=== PATIENT | male | born 1935 | race Caucasian/White ===

== ENCOUNTER 2016-12-04 14:43 | Emergency (ER) | payer MEDICARE, MEDICAID ==
--- NOTE | 2016-12-08 18:43 | ER ---
ADMIT: 12/04/2016 RM/LOC: ER [facility] MR#: [id number] [id number] [place], [place] [address] HUANG, YOLANDA E [address] [place] [address] Emergency Room Report SEX: M AGE: 81 : 1935 DATE: 12/04/2016 CHIEF COMPLAINT: Left-sided upper abdomen pain still present, severity moderate. No fever, nausea, vomiting, or diarrhea. REVIEW OF SYSTEMS: Otherwise negative. PAST MEDICAL HISTORY: He does not have any reported past medical history. MEDICATIONS: Takes no medications. ALLERGIES: NO ALLERGIES. PHYSICAL EXAMINATION: GENERAL: Well-nourished, well-developed, alert and oriented male. VITAL SIGNS: Within normal limits. O2 sats 95%. RESPIRATORY: He has a little bit of wheezing and a cough. Otherwise his lungs are clear. ABDOMEN: Upper left abdomen tender. BACK: Normal inspection. SKIN: Good color and turgor. EXTREMITIES: Nontender. NEUROLOGIC: Oriented x4. Mood and affect appropriate. LABORATORY DATA: White count 12.1 with a hemoglobin of 13.2, hematocrit is 39.3. Chemistry; glucose 104, albumin 2.6, GFR 69, lactic acid 1.1, urobilinogen 4.0, protein 1+. Given Rocephin IM and a followup azithromycin for home use as well as prednisone. CLINICAL IMPRESSION: Bilateral pneumonia. The patient refuses to stay for admission and as it stands if he can take care of himself at home, there is no need to put him in. He just needs close followup. Discharge instructions given. CARRIE Phipps / Shreyas Lazcano MD / casimiro JOB #: [id number] CC: Shreyas Lazcano MD, Attending Physician
[2017-02-24] MEDS ORDERED: ASA CHILDREN'S81 MG PO (14:24)
[2017-02-24] MEDS ORDERED: CARDIZEM CD DP120 MG PO (14:24)
[2017-02-24] MEDS ORDERED: COUMADIN5 MG PO (14:24)
[2017-02-24] MEDS ORDERED: COUMADIN2.5 MG PO (14:25)
[2017-02-24] MEDS ORDERED: LANOXIN DPS0.125 MG PO (14:25)
[2017-02-24] MEDS ORDERED: ZOCOR DPS20 MG PO (14:25)
[2017-02-24] MEDS ORDERED: ZYPREXA5 MG PO (14:25)
[2017-02-24] MEDS ORDERED: ZEBETA5 MG PO (14:25)
[2017-02-24] MEDS ORDERED: ZYPREXA2.5 MG PO (14:26)
[2017-02-24] MEDS ORDERED: HABITROL TP (14:26)
[2017-02-24] MEDS ORDERED: TYLENOL DPS325 MG PO (14:27)
[2017-02-24] MEDS ORDERED: MAALOX DPS30 ML PO (14:27)
[2017-02-24] MEDS ORDERED: PROVENTIL2.5 MG/3 M IH (14:27)
[2017-02-24] MEDS ORDERED: COLACE-DPS100 MG PO (14:27)
[2017-02-24] MEDS ORDERED: NITROSTAT0.4 MG SL (14:28)
[2017-06-14] MEDS ORDERED: TYLENOL DPS325 MG PO (09:40)
[2017-06-14] MEDS ORDERED: LEVAQUIN DPS500 MG PO (09:43)
[2017-06-14] MEDS ORDERED: DELTASONE DPS20 MG PO (09:43)
[2017-06-14] MEDS ORDERED: SALINE NASAL SP88 ML NS (09:44)
[2017-06-14] MEDS ORDERED: DUONEB DPS3 ML IH (09:44)
[2017-06-14] MEDS ORDERED: IMODIUM A-D2 M1 PO (09:44)
== END 2016-12-04 17:05 | disposition home or self-care (01) ==
LOC: ER 14:43
DX: J18.9 Pneumonia, unspecified organism (principal); R06.2 Wheezing; R10.12 Left upper quadrant pain

== ENCOUNTER 2017-02-12 18:57 | Inpatient (IN) | payer MEDICARE, MEDICAID ==
[~2017-02-12] VITALS: Ht 172.7 cm; Wt 78.5 kg
--- NOTE | ~2017-02-12 | HP ---
ADMIT: 02/12/2017 RM/LOC: 421 [facility] MR#: [id number] [id number] [place], [place] [address] YOLANDA ENCINAS [address] [place] [address] History and Physical SEX: M AGE: 81 : 1935 DATE OF SERVICE: CHIEF COMPLAINT: Shortness of breath. HISTORY OF PRESENT ILLNESS: Mr. Encinas is an 81-year-old male. He has a past medical history significant for history of COPD, coronary artery disease status post stent, GERD, hypertension, tobacco use, who presented to the ER via ambulance with a complaint of shortness of breath. Apparently, he was visiting his girlfriend at the senior living and had acute onset of shortness of breath. It sounds like maybe he waited 20- 30 minutes, called the squad. They noted when they picked him up, his heart rate was nearly 270. He was given adenosine twice, and it did show evidence of flutter waves after the adenosine was given. He reports that he otherwise has not had this happen before. He reports that he is now feeling much better than he was before. Otherwise, he reports that nothing else is really new or different. Of note, it looks like from our office notes that he was in to see Dr. Hernandez about 2 weeks ago. At that time, was having some trouble with swelling in his legs, and he had it sounds like they gave him some Lasix. He reports that he feels like this has helped, otherwise he really has no other complaints. PAST MEDICAL HISTORY: Significant for: 1. COPD. 2. Coronary artery disease status post stent. 3. GERD. 4. Hypertension. 5. Lumbar degenerative joint disease. 6. He is a smoker. 7. Hyperlipidemia. 8. Cognitive decline. 9. He is status post appendectomy. MEDICATIONS: Currently are: 1. Albuterol inhaler. 2. Amlodipine 10 mg p.o. daily. 3. Aspirin 81 mg p.o. daily. 4. Furosemide 40 mg p.o. daily. 5. Lisinopril 20 mg p.o. daily. 6. Zantac 150 p.o. twice daily. 7. Simvastatin 20 mg p.o. daily. ALLERGIES: NO KNOWN MEDICAL ALLERGIES. HE SMOKES APPROXIMATELY ONE PACK A DAY. HE HAS A GIRLFRIEND THAT LIVES IN THE RETIREMENT. FAMILY HISTORY: Positive for a brother with coronary artery disease but no other significant history. REVIEW OF SYSTEMS: Obtained, was otherwise essentially negative. PHYSICAL EXAMINATION: GENERAL: He is very hard of hearing. He appears to be ADMIT: 02/12/2017 RM/LOC: 421 [facility] MR#: [id number] [address] [address] HUANG, ALPHA E [address] [place] [address] History and Physical SEX: M AGE: 81 : 1935 in no apparent distress. Pupils are round, reactive. Oropharynx has poor dentition (actually no teeth). NECK: Supple. HEART: Tachycardic rate with an irregular rhythm. LUNGS: Have coarse breath sounds bilaterally with an occasional expiratory wheeze. ABDOMEN: Soft. Bowel sounds are present. Lower extremities have 2 to 3+ bilateral lower extremity edema. LABORATORY AND X-RAY DATA: Of note, his EKG does show that he had a rapid atrial flutter, otherwise his lab showed troponin of 0.1. Rest of the labs are relatively unremarkable. ASSESSMENT AND PLAN: 1. New onset atrial flutter. At this time, we will go ahead and give him some Lovenox, keep him anticoagulated, and put him n.p.o. after midnight. Have Surgery see him. Continue with Medardo wikls. We will plan to give him Xopenex p.r.n. He will likely need an echo also. 2. Underlying COPD (chronic obstructive pulmonary disease). I am uncertain the extent of his COPD as well. It does not sound like he uses an inhaler on a regular basis. 3. GERD (gastroesophageal reflux disease). Continue some Pepcid. 4. Hypertension. Currently, his blood pressure is low. We will hold off on any blood pressure medications at this time. 5. Nicotine dependence. 6. Hyperlipidemia, continue his simvastatin. 7. Cognitive decline. There is a note in our chart about concern for his ability to take care of himself. We will go ahead and ask the hospital social worker to see also. Lakshmi Andujar MD/ heidi JOB #: [id number] CC: Jonel Hernandez, Attending Physician Jonel Hernandez, Family Physician
--- NOTE | 2017-02-17 08:20 | ER ---
ADMIT: 02/12/2017 RM/LOC: 421 [facility] MR#: [id number] [address] [place], [place] [address] YOLANDA ENCINAS [address] [place] [address] Emergency Room Report SEX: M AGE: 81 : 1935 DATE: 02/12/2017 CHIEF COMPLAINT: Shortness of breath. HISTORY OF PRESENT ILLNESS: The patient is an 81-year-old male, comes in by EMS for shortness of breath and concern of possible SVT. Apparently, the patient was placed on the monitor, had a very rapid heart rate of at least 250 and they gave him adenosine 6 mg IV followed by 12 mg IV. They state that he slowed down, but went right back into the rapid rhythm. When the patient presents, he is a quite poor historian, he is not able to give me much history other than he just feels short of breath. He denies any chest pain, and thinks this began maybe 45 minutes ago to an hour when he was walking and not really exerted himself that much. He states he does not think this has happened in the past and thinks he might have some heart condition, but cannot give me more information on that. He denies being ill recently. REVIEW OF SYSTEMS: Unable to obtain a reliable review of systems due to the patient's likely cognitive issues with some dementia. PAST MEDICAL HISTORY: Obtained by talking to the physician covering for the patient's primary care physician. He does apparently have a history of coronary artery disease with stent placement, hypertension, high cholesterol, COPD, GERD. MEDICATIONS: The patient is unaware of his medications, so I did get a list from the primary service. See nurse's note for the list. ALLERGIES: NONE. SOCIAL HISTORY: The patient denies smoking or drug use. PHYSICAL EXAMINATION: GENERAL: The patient is alert, oriented on presentation. HEAD: Atraumatic. NECK: Supple. HEART: Tachycardic, rate of roughly 250. LUNGS: Clear to auscultation. ABDOMEN: Soft. SKIN: Warm and dry. EXTREMITIES: He has pulses in all 4 extremities. He does have 2+ pedal edema bilaterally to the lower extremities. No signs of any trauma. IMAGING: EKG shows tachycardic rhythm, rate of 266. Chest x-ray shows nothing acute compared to a previous chest x-ray. LABORATORY DATA: White count is 12.8, hemoglobin of 12.7, platelets 142. Chemistries are normal. CK is 53, CK-MB is 2.1, troponin 0.156, INR 1.21. EMERGENCY DEPARTMENT COURSE: The patient arrives, he is tachycardic, put him ADMIT: 02/12/2017 RM/LOC: 421 [facility] MR#: [id number] [address] [address] HUANG, ALPHA E [address] [place] [address] Emergency Room Report SEX: M AGE: 81 : 1935 on the monitor, it looks like it could be SVT. We did give him adenosine here 12 mg IV push, which does reveal that he is in atrial flutter rhythm. Shortly after the adenosine was given, he goes back into a tachycardic rhythm, but it is in the 140s to 160s. He was given Lopressor 5 mg IV, which slowed him down to 130 and then afterwards was given Cardizem IV followed by Cardizem drip, which has kept his heart rate in the low 100s. He is feeling better with that. He did receive a 500 mL normal saline bolus while in the Emergency Department. I spoke to Dr. Andujar, who is on this evening for the patient's primary care physician, and he will be admitted. DIAGNOSES: 1. Atrial flutter with rapid ventricular response. 2. Shortness of breath. 3. Elevated troponin. 4. Mild dementia. A 45 minutes of critical care time was spent on this patient. Admitted in improved condition. Benja Trent MD/ casimiro JOB #: [id number] CC: Jonel Hernandez MD, Attending Physician Jonel Hernandez MD, Family Physician
[2017-02-24] MEDS ORDERED: COUMADIN5 MG PO (14:24)
[2017-02-24] MEDS ORDERED: CARDIZEM CD DP120 MG PO (14:24)
[2017-02-24] MEDS ORDERED: ASA CHILDREN'S81 MG PO (14:24)
[2017-02-24] MEDS ORDERED: ZEBETA5 MG PO (14:25)
[2017-02-24] MEDS ORDERED: ZOCOR DPS20 MG PO (14:25)
[2017-02-24] MEDS ORDERED: COUMADIN2.5 MG PO (14:25)
[2017-02-24] MEDS ORDERED: LANOXIN DPS0.125 MG PO (14:25)
[2017-02-24] MEDS ORDERED: ZYPREXA5 MG PO (14:25)
[2017-02-24] MEDS ORDERED: ZYPREXA2.5 MG PO (14:26)
[2017-02-24] MEDS ORDERED: HABITROL TP (14:26)
[2017-02-24] MEDS ORDERED: PROVENTIL2.5 MG/3 M IH (14:27)
[2017-02-24] MEDS ORDERED: MAALOX DPS30 ML PO (14:27)
[2017-02-24] MEDS ORDERED: COLACE-DPS100 MG PO (14:27)
[2017-02-24] MEDS ORDERED: TYLENOL DPS325 MG PO (14:27)
[2017-02-24] MEDS ORDERED: NITROSTAT0.4 MG SL (14:28)
--- NOTE | 2017-02-25 10:56 | CO ---
ADMIT: 02/12/2017 RM/LOC: 421 [facility] MR#: [id number] [address] [place], [place] [address] YOLANDA ENCINAS [address] [place] [address] Consultation SEX: M AGE: 81 : 1935 DATE OF CONSULTATION: 02/13/2017 ATTENDING PHYSICIAN: Jonel Hernandez CONSULTING PHYSICIAN: Arturo Simental MD REASON FOR CONSULT: Atrial flutter. HISTORY OF PRESENT ILLNESS: Yolanda is an 81-year-old gentleman who is new to us. Apparently, he has coronary artery disease, but I do not know the details. He also has a long smoking history and COPD. I was asked to see him at the request of Dr. Andujar after he presented with a narrow complex tachycardia, has been diagnosed with new atrial flutter. The patient is extraordinarily hard of hearing. He is somewhat uncooperative this morning and does not want to answer my questions. From what I can gather, he was visiting somebody. He began to have palpitations with significant shortness of breath. He denies that he had significant chest discomfort. When the ambulance arrived, he was found to be very tachycardic. He was given 2 doses of adenosine, which revealed flutter waves. It appears that he was conducting one-to-one. He was subsequently hospitalized. He has been placed on a Cardizem drip and his heart rate much improved this morning with now 3 to 4 to 1 AV block and a heart rate of 75. He is on low-dose Cardizem. He said he felt his heart racing but mostly was short of breath. He did not have chest discomfort. His troponin is mildly elevated. He has been having some recent edema. Denies orthopnea or PND. His EKG also shows some T-wave inversion across the anterior precordial leads. ALLERGIES: NO KNOWN MEDICAL ALLERGIES. MEDICATIONS: I believe his home medications are: 1. Albuterol inhaler. 2. Amlodipine 10 daily. 3. Aspirin 81 daily. 4. Lasix 40 daily. 5. Lisinopril 20 daily. 6. Zantac 150 twice daily. 7. Simvastatin 20 daily. ILLNESSES: COPD, hypertension, he has lumbar osteoarthritis, gastroesophageal reflux disease, coronary artery disease with previous PCI. I do not know the details. Hyperlipidemia, some beginning dementia. PAST SURGICAL HISTORY: Prior appendectomy. FAMILY HISTORY: He just told me all his family is and did not know any details about his mother, father, or siblings demise or chronic illnesses. SOCIAL HISTORY: He says he lives with "Suyapa Goodman." He said he does ADMIT: 02/12/2017 RM/LOC: 421 [facility] MR#: [id number] [address] [address] HUANG, ALPHA E [address] [place] [address] Consultation SEX: M AGE: 81 : 1935 not smoke every day. Denies alcohol. He is . He denies having any children. REVIEW OF SYSTEMS: Impossible due to his severe hearing deficiency, and he was uncooperative this morning. PHYSICAL EXAMINATION: VITAL SIGNS: Currently, his blood pressure 108/61, his pulse is 74 and regular, respirations 20, his temperature is 99.5, O2 sats are 90% on supplemental oxygen. GENERAL: He wakes up for me. He was sleeping. He is very hard of hearing. He does not want to answer all my questions and he insists on going home. EYES: Sclerae clear. No xanthelasmas. ENT: He would not lift his chin, so I could not hear his carotid adequately, but I do not appreciate any significant JVD or bruits. HEART: Regular, is distant over his lung sounds. I do not hear any significant murmurs, rubs, or gallops. CHEST: Poor air movement throughout, but symmetric. No specific areas of rales or rhonchi. ABDOMEN: Soft and nontender. EXTREMITIES: There is mild discoloration bilaterally and pitting edema up to his mid calf. PSYCH: I am not sure he is completely oriented. He is a little bit uncooperative. He does answer some of my questions. He is not belligerent, but he is not cooperative either. MUSCULOSKELETAL: Gait is normal. LABORATORY DATA: Sodium 139, potassium is 4.5, creatinine 1.0. AST and ALT were normal. CK was normal at 86. His troponin has increased to 2.0 from 0.156 when he came in. White count is 12.5 with a hemoglobin of 12.7, and platelet count 152,000. A 12-lead EKG shows typical atrial flutter with T- wave inversion across the anterior precordium currently in 3 or 4-1 AV block. IMPRESSION: 1. Newly diagnosed symptomatic atrial flutter. 2. Chronic obstructive pulmonary disease. 3. Coronary artery disease. 4. Hypertension. 5. Ongoing tobacco abuse. 6. Probable dementia. RECOMMENDATIONS: His dementia may be a problem as far as treatment. I am not sure he is going to be compliant with his medications. He insists on going home. Luckily, his heart rate is much improved on the IV Cardizem. I think we will try rate control with oral Zebeta since he has coronary artery disease ADMIT: 02/12/2017 RM/LOC: 421 [facility] MR#: [id number] [address] [place] [id number] HUANG, ALPHA E [address] [place] [address] Consultation SEX: M AGE: 81 : 1935 and underlying COPD. I would suggest we start one of the newer anticoagulants and hopefully, we can confirm that he is taking it routinely. I will consider a LEANN guided cardioversion, but I do not think he could give consent, and I am not sure he would be willing at this point. I would like to do a baseline echo certainly before he leaves the hospital. If we can control his rate and keep him compliant, I will consider having him see the vault manager for definitive therapy with atrial flutter ablation. His atrial flutter was very fasting conducted 1-. I still think his troponin is nonspecific and secondary to his severe tachycardia. We will consider an ischemic evaluation with probable stress test in the future. Arturo Simental MD/ casimiro JOB #: [id number] CC: Jonel Hernandez, Attending Physician [facility] Hernandez, Family Physician
--- NOTE | 2017-03-04 12:08 | DS ---
ADMIT: 02/12/2017 RM/LOC: 421 [facility] MR#: [id number] [address] [place], [place] [address] YOLANDA ENCINAS [address] [place] [address] Discharge Summary SEX: M AGE: 81 : 1935 ADMISSION DATE: 02/12/2017 DISCHARGE DATE: 02/13/2017 DISCHARGE DIAGNOSES: 1. A (atrial) flutter with a 1:1 conduction. 2. Positive troponin. 3. Confusion. 4. Iwwo-so-kmldcyl. 5. Dyspnea. 6. Chest pain. 7. Hypoxia. 8. History of hypertension. 9. History of coronary artery disease status post stent. 10.History of nicotine dependence. HOSPITAL COURSE: The patient was admitted. Was initially given some adenosine out in the field and then was on an IV Cardizem drip. He was also started on anticoagulation. The next morning, Cardiology did come by and see him, started him on some oral Zebeta. The patient was pretty adamant about wanting to leave and would not stay. Therefore, it was felt at that time that he could make decisions and was not unable to make decisions for himself, and so therefore he was discharged home. He actually left A, but we did call in his 2 new medications, which in addition to his home medications, he was to be takin. Zebeta 5 mg p.o. daily. 2. Coumadin 5 mg p.o. daily. He was to get an INR checked on Wednesday at [facility]. Otherwise, he is to follow up with Dr. Hernandez in 1 week. Lakshmi Andujar MD/ ruslan JOB #: [id number] CC: Jonel Hernandez MD, Attending Physician Jonel Hernandez MD, Family Physician
[2017-06-14] MEDS ORDERED: TYLENOL DPS325 MG PO (09:40)
[2017-06-14] MEDS ORDERED: DELTASONE DPS20 MG PO (09:43)
[2017-06-14] MEDS ORDERED: LEVAQUIN DPS500 MG PO (09:43)
[2017-06-14] MEDS ORDERED: DUONEB DPS3 ML IH (09:44)
[2017-06-14] MEDS ORDERED: IMODIUM A-D2 M1 PO (09:44)
[2017-06-14] MEDS ORDERED: SALINE NASAL SP88 ML NS (09:44)
== END 2017-02-13 10:24 | disposition left against medical advice (07) | DRG 310 ==
LOC: ER 18:57 → 4PCU 20:00
PROVIDERS: ADMIT Internal Medicine
DX: I48.92 Unspecified atrial flutter (principal); J44.9 Chronic obstructive pulmonary disease, unspecified; R41.81 Age-related cognitive decline; I10 Essential (primary) hypertension; R79.89 Other specified abnormal findings of blood chemistry; H91.90 Unspecified hearing loss, unspecified ear; R09.02 Hypoxemia; I25.10 Atherosclerotic heart disease of native coronary artery without angina pectoris; M47.816 Spondylosis without myelopathy or radiculopathy, lumbar region; F17.210 Nicotine dependence, cigarettes, uncomplicated; K21.9 Gastro-esophageal reflux disease without esophagitis; Z95.5 Presence of coronary angioplasty implant and graft; Z79.82 Long term (current) use of aspirin; Z82.49 Family history of ischemic heart disease and other diseases of the circulatory system

== ENCOUNTER 2017-02-13 13:55 | Inpatient (IN) | payer MEDICARE, MEDICAID ==
[~2017-02-13] VITALS: Ht 172.7 cm; Wt 76.7 kg
--- NOTE | ~2017-02-13 | ECH ---
Transthoracic Echocardiography Report (TTE) Demographics Patient Name YOLANDA ENCINAS Date of Study 02/18/2017 Patient Number [id number] Visit Number [id number] Date of 1935 Room Number 421 Accession Number [id number] Gender Male Age 81 year(s) Referring David Muller MD Wire Worker [facility] Physician Physician Salvatore Toledo MD Watch Assembly Inspector Physician August Supervising Ordering Physician Philomena Harper MD, MD/MLP Nurse Stress Political Researcher Conclusions Contractility Score Summary Normal Left Ventricular contractility was noted. Summary Technically adequate exam. The estimated left ventricular ejection fraction is 50% in underlying atrial flutter. Mild to moderate left ventricular hypertrophy. The left atrium is moderately dilated by LA volume index measurement. The right atrium is mildly dilated. No significant valvular abnormalities. Recommendation The patient will be given the results of this study by the physician who ordered the exam. Procedure Type of Study TTE procedure:Echo Complete SF. Procedure Date Date: 02/18/2017 Start: 11:04 AM Technical Quality: Adequate visualization Indications:Atrial flutter, Coronary artery disease and Hypertension. Appropriate Use Criteria: 9 Height: 68 inches Weight: 170 pounds BSA: 1.91 m Rhythm: Atrial flutter HR: 74 bpm BP: 88/47 mmHg M-Mode/2D Measurements LV Diastolic Dimension: 4.67 cm LV Systolic Dimension: 3.17 cm LV Septum Diastolic: 1.1 cm LV PW Diastolic: 1.32 cm AO Root Dimension: 2.76 cm Cardiac Output: 2.88 l/min LA Dimension: 3.99 cm Cardiac Index: 1.51 l/min*m RV Diastolic Dimension: 3.28 cm LA volume index: 46 ml/m LVOT: 2.02 cm LVOT VTI: 12.13 cm RV Base: 3.97 cm LV Stroke volume: 38.85 ml RV Mid: 2.46 cm LV Stroke volume index: 20.34 ml/m RV Length: 6.36 cm TAPSE: 1.56 cm Doppler Measurements AV Peak Velocity: 1.1 m/s MV Peak E-Wave: 0.8 m/s AV Peak Gradient: 4.84 mmHg AV Mean Gradient: 3.72 mmHg LVOT Peak Velocity: 0.68 m/s AV Area (Continuity):1.66 cm TR Velocity:2.03 m/s Estimated PASP: 21.48 mmHg TR Gradient:16.48 mmHg Estimated RAP:5 mmHg Estimated RVSP: 21 mmHg RA Area: 18.28 cm Findings Left Ventricle The left ventricle is normal in size . Mild to moderate left ventricular hypertrophy. Diastolic function indeterminate due to patient's arrhythmia. Right Ventricle Normal right ventricle structure and function. Left Atrium The left atrium is moderately dilated by LA volume index measurement. Right Atrium The right atrium is mildly dilated. Mitral Valve Normal mitral valve structure and function. Trivial mitral regurgitation by color Doppler. Aortic Valve The aortic valve is mildly sclerotic. Tricuspid Valve Normal tricuspid valve structure and function. Mild tricuspid regurgitation by color Doppler. Estimated pulmonary pressures within normal range. Pulmonic Valve The pulmonic valve is not well visualized. Pericardial Effusion No evidence of pericardial effusion. Miscellaneous Visualized portions of the aortic root and ascending aorta appear normal in size. Pleural Effusion No evidence of pleural effusion. Contractility Score LV regional wall motion:(0-Non visualized 1-Normal 2-Hypokinesis 3-Akinesis 4-Dyskinesis 5-Aneurysm) Signature
--- NOTE | ~2017-02-13 | LETTER ---
ADMIT: 02/13/2017 RM/LOC: 421 [facility] MR#: [id number] [address] [facility] [address] ERROL VASQUEZ [address] [place] [address] Letter SEX: M AGE: 81 : 1935 February 15, 2017 Re: ERROL VASQUEZ To whom it may concern: The patient, Errol Vasquez, 1935, is currently a patient under my care. The patient has recently been evaluated by myself and Dr. Galvin with Psychiatry and at this point, due to the diagnosis of cognitive decline/dementia with agitation, I am recommending guardianship and placement in a senior living facility. Please do not hesitate to contact my office with any questions or concerns. Sincerely, MD ZULEMA Lawton/casimiro /[id number]
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
[2017-02-24] MEDS ORDERED: ASA CHILDREN'S81 MG PO (14:24)
[2017-02-24] MEDS ORDERED: CARDIZEM CD DP120 MG PO (14:24)
[2017-02-24] MEDS ORDERED: COUMADIN5 MG PO (14:24)
[2017-02-24] MEDS ORDERED: ZOCOR DPS20 MG PO (14:25)
[2017-02-24] MEDS ORDERED: ZYPREXA5 MG PO (14:25)
[2017-02-24] MEDS ORDERED: COUMADIN2.5 MG PO (14:25)
[2017-02-24] MEDS ORDERED: ZEBETA5 MG PO (14:25)
[2017-02-24] MEDS ORDERED: LANOXIN DPS0.125 MG PO (14:25)
[2017-02-24] MEDS ORDERED: ZYPREXA2.5 MG PO (14:26)
[2017-02-24] MEDS ORDERED: HABITROL TP (14:26)
[2017-02-24] MEDS ORDERED: MAALOX DPS30 ML PO (14:27)
[2017-02-24] MEDS ORDERED: PROVENTIL2.5 MG/3 M IH (14:27)
[2017-02-24] MEDS ORDERED: TYLENOL DPS325 MG PO (14:27)
[2017-02-24] MEDS ORDERED: COLACE-DPS100 MG PO (14:27)
[2017-02-24] MEDS ORDERED: NITROSTAT0.4 MG SL (14:28)
--- NOTE | 2017-02-26 09:59 | DS ---
ADMIT: 02/13/2017 RM/LOC: 421 [facility] MR#: [id number] [address] [place], [place] [address] YOLANDA ENCINAS [address] [place] [address] Discharge Summary SEX: M AGE: 81 : 1935 ADMISSION DATE: 02/13/2017 DISCHARGE DATE: 02/23/2017 DISCHARGE DIAGNOSES: 1. Dementia with agitation, agitation resolved. 2. Atrial flutter with rapid ventricular response. 3. Need for chronic anticoagulation with Coumadin. 4. Hypertension. 5. Hyperlipidemia. 6. Chronic diastolic heart failure. CONSULTATIONS: 1. Cardiology. 2. Psychiatry. PROCEDURES: None. REASON FOR ADMISSION: A very pleasant, 81-year-old gentleman who was admitted and then readmitted after leaving [place] when he was brought in with police secondary to agitation and confusion. When he was admitted it was found he was just not safe to live on his own. He was also in atrial flutter and was admitted for further evaluation and treatment. For complete details, please see H and P dictated on the day of admission. HOSPITAL COURSE: At the time of admission, the patient was placed in a telemetry bed. He did require a sitter for a period of time. Psychiatry was consulted and they did agree that this was likely dementia just with some agitation. He was started on some Zyprexa and did very well. His agitation resolved. He was found to be in atrial flutter and underwent rate control anticoagulation strategy. Did have to deal with some blood pressure issues but eventually he did need some IV digoxin loading and did need some IV Cardizem. Cardiology saw him. As mentioned, he underwent echocardiogram which showed a normal ejection fraction. We were able to get his rates controlled and while monitoring his blood pressures closely. He was ADMIT: 02/13/2017 RM/LOC: 421 [facility] MR#: [id number] [address] [place], [place] [address] YOLANDA ENCINAS [address] [place] [address] Discharge Summary SEX: M AGE: 81 : 1935 eventually sent out on a regimen of Zebeta, Cardizem and digoxin. He ambulated and he ate and was thought to be ready for discharge as soon as probably the 19 of February. However, did need to have guardianship. As he had no family, no guardianship needed to be established. Emergency guardianship was undertaken and he was finally able to be discharged on 02/23 to [facility]. DISCHARGE INSTRUCTIONS: Discharge medications are found on his discharge medication list. Discharge diet is a cardiac diet. Discharge activity is as tolerated. He will have follow up with myself and the [facility] within the next couple of weeks. He will have followup INR due to his recent Coumadin initiation. Jonel Hernandez MD/ vdg JOB #: [id number] CC: Jonel Hernandez MD, Attending Physician Jonel Hernandez MD, Family Physician
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
[2017-06-14] MEDS ORDERED: TYLENOL DPS325 MG PO (09:40)
[2017-06-14] MEDS ORDERED: DELTASONE DPS20 MG PO (09:43)
[2017-06-14] MEDS ORDERED: LEVAQUIN DPS500 MG PO (09:43)
[2017-06-14] MEDS ORDERED: SALINE NASAL SP88 ML NS (09:44)
[2017-06-14] MEDS ORDERED: IMODIUM A-D2 M1 PO (09:44)
[2017-06-14] MEDS ORDERED: DUONEB DPS3 ML IH (09:44)
== END 2017-02-23 15:19 | DRG 57 ==
LOC: ER 13:55 → 4PCU 15:30
PROVIDERS: ADMIT Internal Medicine
DX: G30.9 Alzheimer's disease, unspecified (principal); I11.0 Hypertensive heart disease with heart failure; I95.9 Hypotension, unspecified; F02.81 Dementia in other diseases classified elsewhere, unspecified severity, with behavioral disturbance; I50.32 Chronic diastolic (congestive) heart failure; I48.92 Unspecified atrial flutter; J44.9 Chronic obstructive pulmonary disease, unspecified; F17.210 Nicotine dependence, cigarettes, uncomplicated; H91.90 Unspecified hearing loss, unspecified ear; I25.10 Atherosclerotic heart disease of native coronary artery without angina pectoris; K21.9 Gastro-esophageal reflux disease without esophagitis; M47.816 Spondylosis without myelopathy or radiculopathy, lumbar region; E78.5 Hyperlipidemia, unspecified; Z79.82 Long term (current) use of aspirin; Z95.5 Presence of coronary angioplasty implant and graft; Z79.01 Long term (current) use of anticoagulants; Z82.49 Family history of ischemic heart disease and other diseases of the circulatory system

== ENCOUNTER 2017-06-04 23:15 | Inpatient (IN) | payer MEDICARE, MEDICAID ==
[~2017-06-04] VITALS: Ht 172.7 cm; Wt 71.2 kg
--- NOTE | ~2017-06-04 | OR ---
ADMIT: 06/05/2017 RM/LOC: 521 [facility] MR#: [id number] [facility]#: [id number] [address] [address] YOLANDA ENCINAS [place], [place] [address] Operative/Delivery Room Report SEX: M AGE: 81 : 1935 SURGERY DATE: 06/08/2017 SURGEON: Robert Braun MD PREOPERATIVE DIAGNOSES: Evidence of bleeding with a high INR and anemia. POSTOPERATIVE DIAGNOSES: Mild gastritis. No ulcers, masses, or lesions seen throughout the stomach or duodenum. A small hiatal hernia, but no evidence for bleeding or anemia. 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 FINAL PATHOLOGY: Pending on biopsies. PROCEDURES: 1. EGD. 2. Colonoscopy with biopsies of the cecal mass and tattooing around this area. ANESTHESIA: MAC. ESTIMATED BLOOD LOSS: Less than 5 mL. INDICATION FOR PROCEDURE: Please see H and P. DESCRIPTION OF PROCEDURE: After the risks, benefits, possible complications, and the alternatives had been explained and informed consent had been obtained, the patient was taken back to the procedure room, underwent sedation. Flexible EGD scope was introduced. GE junction seen in the first picture maneuvered through here, through the stomach, down in the second portion of the duodenum seen in the 3rd picture. Duodenum and duodenal bulb appeared okay. The gastric antrum had some mild irritation and gastritis, but no evidence of ulcers, lesions, anything that should be causing bleeding or anemia. Retroflexion and inspection of the remainder of the stomach as well shows no other mass or lesion. I then came back up, slowly withdrawn, inspecting the remainder of the esophagus on the way out and that portion of the procedure was terminated. The scope was replaced, the patient was repositioned, the flexible colonoscope was introduced, the actual prep was decent, was good. Slowly, I maneuvered all the way over to the cecum and 2 sets of pictures there, a little hard to tell, I kept trying to get around this area of the ileocecal valve and basically I think there is a mass there in the cecum, just did not appear normal. I did multiple biopsies of this area. Like I said, I could never feel like I got just a great picture of it. Picture #4 on the first set and then on the second set picture #3, kind of shows this area where I was able to ADMIT: 06/05/2017 RM/LOC: 521 [facility] MR#: [id number] [address] [address] [place] [address] Operative/Delivery Room Report SEX: M AGE: 81 : 1935 push down the ileocecal valve. On the back side of the second set, the ileocecal valve was seen nicely in picture #1 there, so I did multiple biopsies of this area and then tattooed around it just distal to it, but it sure appears to be right at the cecum with the ileocecal valve there. On the remainder of the ascending, transverse, descending, sigmoid, and rectum, I did not see any other significant polyps, masses, lesions, or other mucosal changes. The lower rectum and rectal exam revealed no mass or lesion. The scope was removed and the procedure terminated, tolerated it well, was taken to recovery room in stable and satisfactory condition. Robert Braun MD/ casimiro JOB #: [id number] CC: Jonel Hernandez, Attending Physician Jonel Hernandez, Family Physician Jonel Hernandez MD
--- NOTE | ~2017-06-04 | ER ---
ADMIT: 06/05/2017 RM/LOC: 314 [facility] MR#: [id number] [address] [address] [place] [address] Emergency Room Report SEX: M AGE: 81 : 1935 DATE: 06/04/2017 CHIEF COMPLAINT: Rectal bleeding. HISTORY OF PRESENT ILLNESS: The patient is an 81-year-old gentleman, lives at [facility], who has dementia, comes in after they found that he had some blood going down his thighs and a blood clot in his depends. We did not know the exact time of onset, but it does appear to have likely began this afternoon. From my understanding, the patient has not had GI bleed issues in the past. He is on Coumadin for atrial fibrillation. When I speak to the patient, he has no specific complaints to me. PAST MEDICAL HISTORY: 1. Atrial fibrillation. 2. Hypertension. 3. High cholesterol. 4. Dementia. 5. GERD. 6. Degenerative disk disease. PAST SURGICAL HISTORY: He has had appendectomy and a stent. MEDICATIONS: See nurse's note. He is on Coumadin. ALLERGIES: SEE NURSE'S NOTE. SOCIAL HISTORY: He lives in a [facility]. PHYSICAL EXAMINATION: VITAL SIGNS: Initial blood pressure is 106/43, respirations 17, pulse 49, temp 98.3, sats 92% on 2 L. HEENT: Head is atraumatic. The patient does appear slightly pale. HEART: Irregular. LUNGS: Clear to auscultation. ABDOMEN: Soft, nontender. SKIN: Warm and dry. EXTREMITIES: He has no pedal edema. NEURO: The patient's neuro exam is unremarkable. LABORATORY DATA: Hemoglobin is 8.7 with platelets of 190. Sodium 142, potassium 4.2, carbon dioxide 26, BUN 29, glucose 111, calcium 7.9. Troponin less than 0.015. INR 8.67. EMERGENCY DEPARTMENT COURSE: The patient presented. We went ahead and got two IV lines started and began giving him fluid resuscitation for some ADMIT: 06/05/2017 RM/LOC: 314 [facility] MR#: [id number] [address] [address] HUANG, [place] [address] Emergency Room Report SEX: M AGE: 81 : 1935 hypotension. He was also given Protonix 80 mg IV. His hemoglobin came back at 8.7, so we decided not to transfuse at this time as we did have some improvement in his blood pressure with the fluid resuscitation. His INR came back at 8.7 also, so he was given 10 mg of vitamin K IV. He normally sees Dr. Hernandez, so I spoke to Dr. Andujar who is on-call this evening, we will be admitting the patient to the ICU. DIAGNOSES: 1. Supratherapeutic INR. 2. Lower gastrointestinal bleed. 3. Hypotension. Benja Trent MD/ casimiro JOB #: [id number] CC: Jonel Hernandez MD, Attending Physician Jonel Hernandez MD, Family Physician
[~2017-06-04 23:15] MED LIST: ASA CHILDREN'S81 MG PO; CARDIZEM CD DP120 MG PO; COLACE-DPS100 MG PO; COUMADIN2.5 MG PO; COUMADIN5 MG PO; HABITROL TP; LANOXIN DPS0.125 MG PO; MAALOX DPS30 ML PO; NITROSTAT0.4 MG SL; PROVENTIL2.5 MG/3 M IH; TYLENOL DPS325 MG PO; ZEBETA5 MG PO; ZOCOR DPS20 MG PO; ZYPREXA2.5 MG PO; ZYPREXA5 MG PO
--- NOTE | 2017-06-07 08:09 | CO ---
ADMIT: 06/05/2017 RM/LOC: 521 [facility] MR#: [id number] [address] [address] [place] [address] Consultation SEX: M AGE: 81 : 1935 DATE OF CONSULTATION: 06/06/2017 ATTENDING PHYSICIAN: Jonel Hernandez CONSULTING PHYSICIAN: Carl Johnson MD HISTORY OF PRESENT ILLNESS: This is an 81-year-old demented male, seen in surgical consultation for Dr. Jonel Hernandez for consideration of upper and lower endoscopy. He had eren bright red blood per rectum yesterday, and was brought in after also an episode of syncope. He is unable to relay additional history because of his baseline dementia. He is not sure actually why he is here. He was found to be anemic and also had a supratherapeutic INR of greater than 8. He was subsequently admitted for further workup and treatment. He denies any other complaints today. He has not had eren bleeding overnight, and has remained hemodynamically stable. PAST MEDICAL HISTORY: 1. Dementia. 2. Atrial fibrillation with atrial flutter. 3. Hypertension. 4. Hyperlipidemia. 5. Chronic diastolic heart failure. 6. Coronary artery disease. 7. GERD. 8. COPD. 9. Degenerative lumbar disc disease. MEDICATIONS: At home: 1. Acetaminophen. 2. Aspirin. 3. Cardizem. 4. Coumadin. 5. Doxycycline. 6. DuoNebs. 7. Imodium. 8. Digoxin. 9. Maalox. 10.Nitroglycerin. 11.ProAir. 12.Zebeta. 13.Zocor. 14.Zyprexa. ALLERGIES: NO KNOWN MEDICAL ALLERGIES. SOCIAL HISTORY: Does have a long-standing history of smoking; however, he has not recently because of his living situation. He is a nondrinker. He has court-appointed guardian. ADMIT: 06/05/2017 RM/LOC: 521 [facility] MR#: [id number] [facility] [address] [place], [place] [address] [place] [address] Consultation SEX: M AGE: 81 : 1935 FAMILY HISTORY: Noncontributory. REVIEW OF SYSTEMS: Bright red blood per rectum noted above as well as syncope. Remainder of the 10-point review of systems is negative for other change. PHYSICAL EXAMINATION: GENERAL: Yolanda is alert, confused, in no apparent distress. VITAL SIGNS: Stable. HEENT: Cranial nerves are intact. Sclerae appear pale. NECK: Supple. Trachea is midline. LUNGS: Diminished bilaterally. HEART: Regular rate and rhythm currently. ABDOMEN: Soft and nontender with no palpable masses. EXTREMITIES: Calves are soft bilaterally without neurologic deficit. LABORATORY STUDIES: Sodium 144, potassium 3.9, chloride 113, carbon dioxide 23, BUN of 17, creatinine of 0.9. Hepatic function panel normal. INR today is 1.39, improved from greater than 8. White blood cell count 11.4, hemoglobin of 8.2, platelet count of 135. IMPRESSION: Bright red blood per rectum with supratherapeutic INR of 8. PLAN: His INR is much improved today at 1.39. I do recommend proceeding with esophagogastroduodenoscopy and colonoscopy for further evaluation, as it does not appear that he has ever had these endoscopic studies performed. Those arrangements were being made for tomorrow, and we will obtain guardian consent for that. Carl Johnson MD/ casimiro JOB #: [id number] CC: Jonel Hernandez, Attending Physician Jonel Hernandez, Family Physician
--- NOTE | 2017-06-07 14:39 | HP ---
ADMIT: 06/05/2017 RM/LOC: [address] [facility] MR#: [id number] [address] [address] [place] [address] History and Physical SEX: M AGE: 81 : 1935 DATE OF SERVICE: CHIEF COMPLAINT: "I do not know why I am here." HISTORY OF PRESENT ILLNESS: An 81-year-old patient with dementia; COPD with long history of tobacco abuse; known coronary disease; atrial fibrillation and aflutter, on chronic anticoagulation, presents to [facility] Emergency Room last night from [place] where he is a current resident, reports from the emergency room. Detail episode of large amount of blood and clots from the rectum as well as some dizziness. The patient was also noted to be anemic with a supratherapeutic INR in the ER, and he has been referred to the ICU for further evaluation and treatment. This morning, the patient is not quite sure why he is here and wants to go home. The patient denies any chest pain or shortness of breath. No breathing problems are noted. The patient denies any abdominal pain, nausea, or vomiting. Denies any problems with blood per rectum. Notes that he thinks that was all just blackberry jam and that his caregivers are "full of shit." The patient states this morning he is thirsty and even is a little hungry. PAST MEDICAL HISTORY: 1. Dementia with agitation/behavioral disturbances. 2. Atrial fibrillation/aflutter with RVR, on chronic anticoagulation. 3. Hypertension. 4. Hyperlipidemia. 5. Chronic diastolic heart failure. 6. Coronary artery disease. 7. Nocturnal leg cramps. 8. Degenerative lumbar disk disease. 9. Presbycusis. 10.GERD. 11.Chronic obstructive pulmonary disease. CURRENT HOME MEDICINES: Include: 1. Acetaminophen. 2. Aspirin. 3. Cardizem. 4. Coumadin. 5. Doxycycline. 6. DuoNebs. 7. Imodium. 8. Digoxin. 9. Maalox. 10.Nitroglycerin. 11.ProAir. 12.Saline Nasal Mist. 13.Zebeta. 14.Zocor. 15.Zyprexa. ADMIT: 06/05/2017 RM/LOC: [address] [facility] MR#: [id number] [address] [address] HUANG, [place] [address] History and Physical SEX: M AGE: 81 : 1935 ALLERGIES: NO KNOWN MEDICAL ALLERGIES. SOCIAL HISTORY: Ongoing tobacco use, although he just did quit I believe "when he moved into the assisted living." He is a non-drinker. He has a court-appointed guardian. He has been a like last couple of months. FAMILY HISTORY: Noncontributory and actually, it is really unknown as the patient does not have any living family. REVIEW OF SYSTEMS: Noted above. All systems reviewed and negative. PHYSICAL EXAMINATION: VITAL SIGNS: 97, 46, 15, 125/50, 93% on a couple liters of nasal cannula. GENERAL: This is a gentleman, appears older than stated age. He is in no apparent distress. He is awake, he is alert, pleasantly a little grumpy this morning and confused, which he is at his baseline. He is normocephalic and atraumatic. Mucous membranes are a little dry. NECK: Supple. LUNGS: Little diminished. Has a few rhonchi, but no wheezes or rales. HEART: Regular at this time. I do not hear any obvious murmurs. ABDOMEN: Soft, nontender, nondistended. Positive bowel sounds throughout. RECTAL: Patient defers rectal exam, but just perirectal exam showed a little bit of dark blood, more looks like some melena and some small blood perirectally. EXTREMITIES: Do not show me any edema. LABORATORY WORK: Shows a hemoglobin of 8.7, white count 12.8, 190,000 platelets. Sodium 142, potassium 4.2, BUN is 29, creatinine 1.1. His INR initially was greater than 8 and last check was down at 3.6 after vitamin K in emergency room. His troponin is less than 0.015. ASSESSMENT AND PLAN: 1. Painless bright red blood per rectum. 2. Anemia of acute blood loss. 3. Atrial fibrillation and aflutter, on chronic anticoagulation, now with supratherapeutic INR. ADMIT: 06/05/2017 RM/LOC: [address] [facility] MR#: [id number] [address] [place] [id number] [place] [address] History and Physical SEX: M AGE: 81 : 1935 4. Chronic obstructive pulmonary disease with recent exacerbation. 5. Dementia. 6. History of coronary disease. At this point, the patient is hemodynamically stable. I wonder if this was possibly a diverticular bleed, although the patient has never had an endoscopy done and colonoscopy done in the past as he has declined. At this point, we are going to recheck hemoglobin later in the day. We will let him have clear liquids. We will change him to tele status and plans right now are to just let his INR trend down as long as he does not have any other bleeding and make plans for possible colonoscopic prep and colonoscopy to further evaluate him in the next couple of days. Jonel Hernandez MD/ casimiro JOB #: [id number] CC: Jonel Hernandez, Attending Physician Jonel Hernandez, Family Physician
[2017-06-14] MEDS ORDERED: TYLENOL DPS325 MG PO (09:40)
[2017-06-14] MEDS ORDERED: LEVAQUIN DPS500 MG PO (09:43)
[2017-06-14] MEDS ORDERED: DELTASONE DPS20 MG PO (09:43)
[2017-06-14] MEDS ORDERED: DUONEB DPS3 ML IH (09:44)
[2017-06-14] MEDS ORDERED: IMODIUM A-D2 M1 PO (09:44)
[2017-06-14] MEDS ORDERED: SALINE NASAL SP88 ML NS (09:44)
--- NOTE | 2017-06-16 09:59 | DS ---
ADMIT: 06/05/2017 RM/LOC: [address] [facility] MR#: [id number] ACC#: [id number] [address] [address] [place] [address] Discharge Summary SEX: M AGE: 81 : 1935 ADMISSION DATE: 06/05/2017 DISCHARGE DATE: 06/10/2017 DISCHARGE DIAGNOSES: 1. GI (gastrointestinal) bleeding, likely secondary to cecal mass, biopsy proven adenocarcinoma. 2. Acute blood loss anemia. 3. Atrial fibrillation, on anticoagulation, with supratherapeutic INR. 4. Chronic obstructive pulmonary disease. 5. Healthcare-associated pneumonia. 6. Acute respiratory failure, resolved. 7. History of coronary disease. 8. Dementia. CONSULTATIONS: General surgery. PROCEDURES: EGD and colonoscopy with the general surgeons. REASON FOR ADMISSION: 81-year-old gentleman, atrial fibrillation, on chronic anticoagulation, COPD, presented to [facility] Emergency Room on the day of admission from his nursing facility with complaints of bright red blood and clots per rectum. He was noted to be anemic and he was admitted for further evaluation and treatment. For complete details, please see H and P dictated on the day of admission. HOSPITAL COURSE: At the time of admission, the patient was placed in the ICU in a monitored bed. His INR was noted to be elevated and he was given vitamin K, and allowed his INR to trend down nicely. The bleeding really stopped. He was started on some Protonix, put on a clear liquid diet. He had not had appropriate colonoscopy or EGD and surgeons were consulted. As mentioned, he was put on a clear liquid diet and he was given colon prep which was initially not successful, but then we did get clear prep finally. He went in and his upper endoscopy showed some mild gastritis. His lower endoscopy showed a cecal mass that was likely his source of bleeding. It was biopsied and came back consistent with adenocarcinoma of the colon. The patient overall did well post procedure. Did develop some cough and low-grade fevers and did develop some oxygen requirements. Was found to have a lower lobe infiltrate. Was started on antibiotics, steroids and breathing treatments as this was thought to be healthcare-associated pneumonia. The patient very quickly responded to antibiotics. No fevers were noted. He defervesced nicely. He ADMIT: 06/05/2017 RM/LOC: [address] [facility] MR#: [id number] [address] [address] [place] [address] Discharge Summary SEX: M AGE: 81 : 1935 improved with nebulized treatments. His antibiotics were switched to orals. He ambulated, did not have any oxygen requirements and was thought to be ready for discharge on 06/10. Discharge medications are found on his discharge medication list. Discharge diet is as tolerated. Discharge activity is as tolerated. As mentioned, discharge medications are found on discharge medication list. He will finish a quick burst of steroids and approximately seven days of antibiotics. He will follow up with myself in approximately 7- 10 days at which time, we will discuss with the patient and discussed with General Surgery the possibility of right hemicolectomy for this colon cancer. Definitely with the patient's dementia will need to include the power of agricultural lender/guardian in those discussions. Jonel Hernandez MD/ arnaldog JOB #: [id number] CC: Jonel Hernandez MD, Attending Physician Jonel Hernandez MD, Family Physician
== END 2017-06-10 14:53 | DRG 374 ==
LOC: ER 23:15 → 3ICU 06-05 00:53 → 5MS 06-05 00:53 → 3ICU 06-05 09:29 → 5MS 06-05 12:00
PROVIDERS: ADMIT Internal Medicine
DX: C18.0 Malignant neoplasm of cecum (principal); J18.9 Pneumonia, unspecified organism; J96.00 Acute respiratory failure, unspecified whether with hypoxia or hypercapnia; I95.9 Hypotension, unspecified; I11.0 Hypertensive heart disease with heart failure; D62 Acute posthemorrhagic anemia; J44.0 Chronic obstructive pulmonary disease with (acute) lower respiratory infection; F03.91 Unspecified dementia, unspecified severity, with behavioral disturbance; I50.32 Chronic diastolic (congestive) heart failure; R19.00 Intra-abdominal and pelvic swelling, mass and lump, unspecified site; K44.9 Diaphragmatic hernia without obstruction or gangrene; K29.70 Gastritis, unspecified, without bleeding; I48.91 Unspecified atrial fibrillation; M19.90 Unspecified osteoarthritis, unspecified site; H91.10 Presbycusis, unspecified ear; M51.36 Other intervertebral disc degeneration, lumbar region; I25.10 Atherosclerotic heart disease of native coronary artery without angina pectoris; E78.5 Hyperlipidemia, unspecified; K21.9 Gastro-esophageal reflux disease without esophagitis; R79.1 Abnormal coagulation profile; Z79.01 Long term (current) use of anticoagulants; Z87.891 Personal history of nicotine dependence; Z79.82 Long term (current) use of aspirin